=== PATIENT | male | born 1980 | race Caucasian/White ===

== ENCOUNTER 2016-12-06 21:50 | Emergency (ER) | payer BC ==
[2016-12-06] MEDS ORDERED: Sodium Chloride 0.9% 10 ML Syringe FLUSH PRN (22:01)
--- NOTE | 2016-12-06 22:04 | EDM.PDOC ---
ED HPI GENERAL MEDICAL PROBLEM - General Chief Complaint: General Stated Complaint: left arm numbness Time Seen by Provider: 12/06/16 21:59 Source of Information: Reports: Patient, EMS notes reviewed, Family, RN, RN notes reviewed History Limitations: Reports: No limitations - History of Present Illness INITIAL COMMENTS - FREE TEXT/NARRATIVE: Patient presents to emergency room via EMS at [facility] with a chief complaint of left arm numbness. The patient states the arm numbness has been present to some degree over the past couple of weeks. The patient states his symptoms began about one hour ago. The patient states soon after he ate some food, he felt generalized weakness and "just not feeling well." The patient states that the left arm numbness centralized around the AC joint area. The patient also states he had some substernal chest discomfort. The patient states he also became somewhat diaphoretic and lightheaded. No previous cardiac history. Patient denies any other focal neurological deficits. Patient denies any GI symptoms. Patient states that he does consume alcohol on a daily basis. The patient states that he does smoke one pack of cigarettes every 3 days. The patient denies any illegal drug use. Onset: today Onset Date: 12/06/16 Onset Time: 20:45 Duration: Waxing/waning Location: Reports: chest Quality: Reports: Dull Severity: moderate Improves with: Reports: None Context: Denies: Activity, Exercise, Lifting, Sick contact, Trauma Associated Symptoms: Reports: chest pain, diaphoresis, weakness. Denies: nausea /vomiting, shortness of breath - Related Data Allergies Allergy/AdvReac Type Severity Reaction Status Date / Time erythromycin base Allergy Airway Verified 12/06/16 22:03 Tightness Sulfa (Sulfonamide Allergy Rash Verified 12/06/16 22:03 Antibiotics) Home Meds: Home Meds . [No Known Home Meds] 12/06/16 [History] Past Medical History Genitourinary History: Reports: Other (see below) (History of Epididymitis) Social & Family History - Family History Family Medical History: Noncontributory - Tobacco Use Smoking Status *Q: Current Every Day Smoker Tobacco Use Within Last Twelve Months: Cigarettes Smoking Cessation Information Provided To Patient: Patient Refused - Tobacco Core Measures Tobacco Use/Smoking Within Last 30 Days: Refused Screening - Caffeine Use Caffeine Use: Reports: Coffee - Alcohol Use Alcohol Use History: Yes Alcohol Use in Last Twelve Months: Yes - Recreational Drug Use Recreational Drug Use: No Drug Use in Last 12 Months: No - Living Situation & Occupation Living situation: Reports: Occupation: employed ED ROS GENERAL - Review of Systems Review Of Systems: ROS reveals no pertinent complaints other than HPI. ED EXAM, GENERAL - Physical Exam Exam: See Below Exam Limited By: No limitations General Appearance: alert, no apparent distress, obese Respiratory/Chest: no respiratory distress, lungs clear, normal breath sounds Cardiovascular: normal peripheral pulses, regular rate, rhythm, no edema Peripheral Pulses: 2+: radial (L), radial (R) GI/Abdominal: soft, non tender, abnormal bowel sounds: (hypoactive) Extremities: normal inspection, normal range of motion, non-tender Neurological: alert, oriented Skin Exam: Warm, Dry, Intact, Normal color, No rash EKG INTERPRETATION EKG Date: 12/06/16 Time: 21:59 Rhythm: NSR Rate (beats/min): 84 [place]: normal P-wave: present QRS: normal ST-T: normal QT: normal TX/PQ Interval: 0.13 Comparison: NA - no prior EKG EKG Interpretation Comments: 1. Normal Sinus Rhythm 2. Normal ECG Course - Vital Signs Last Recorded V/S: Last Vital Signs Temp 37.5 C 12/06/16 21:56 Pulse 85 12/06/16 21:56 Resp 18 12/06/16 21:56 BP 131/72 12/06/16 21:56 Pulse Ox 99 12/06/16 21:56 - Orders/Labs/Meds Orders: Active Orders 24 hr Category Date Time Status EKG 12 Lead [EKG Documentation Completion] [RC] STAT Care 12/06/16 22:00 Active Chest 2V [CR] Stat Exams 12/06/16 22:00 Taken Sodium Chloride 0.9% [Saline Flush] Med 12/06/16 22:01 Active 10 ml FLUSH ASDIRECTED PRN Peripheral IV Insertion Adult [OM.PC] Routine Oth 12/06/16 22:01 Ordered Medication Orders Sodium Chloride (Saline Flush) 10 ml FLUSH ASDIRECTED PRN PRN Reason: Keep Vein Open Labs: Laboratory Tests 12/06/16 12/06/16 12/06/16 Range/Units 22:32 22:32 22:37 WBC 10.6 H (4.0-10.0) x10^3/uL RBC 5.66 (4.5-6.0) x10^6/uL Hgb 15.2 (14.0-18.0) g/dL Hct 46.5 (40.0-52.0) % MCV 82.2 (78.0-93.0) fL MCH 26.9 (26.0-32.0) pg MCHC 32.7 (32.0-36.0) g/dL RDW Coeff of Denilson 14.9 (10.0-15.0) % Plt Count 305 (130-400) x10^3/uL Neut % (Auto) 59.1 (50.0-80.0) % Lymph % (Auto) 30.2 (25.0-50.0) % [place] % (Auto) 7.3 (2.0-11.0) % Eos % (Auto) 3.0 (0.0-4.0) % Baso % (Auto) 0.4 (0.2-1.2) % Sodium 141 (136-145) mmol/L Potassium 3.5 (3.5-5.1) mmol/L Chloride 104 (98-107) mmol/L Carbon Dioxide 27 (21-32) mmol/L BUN 16 (7-18) mg/dL Creatinine 1.2 (0.70-1.30) mg/dL Est Cr Clr Drug Dosing TNP Estimated GFR (MDRD) > 60 Glucose 125 H (74-106) mg/dL Calcium 8.8 (8.5-10.1) mg/dL Corrected Calcium 8.80 (8.5-10.1) mg/dL Phosphorus 3.1 (2.6-4.7) mg/dL Magnesium 2.0 (1.8-2.4) mg/dL Total Bilirubin 0.3 (0.2-1.0) mg/dL AST 15 (15-37) U/L ALT 28 (16-63) U/L Alkaline Phosphatase 79 (46-116) U/L Creatine Kinase 102 (39-308) U/L Creatine Kinase Index 0.7 (0.0-4.0) % CK-MB (CK-2) 0.7 (0.0-3.6) ng/mL POC Troponin I 0.00 (0.00-0.08) ng/mL Total Protein 7.6 (6.4-8.2) g/dL Albumin 4.0 (3.4-5.0) g/dL Globulin 3.6 Albumin/Globulin Ratio 1.11 Ethyl Alcohol < 3 (0-3) mg/dL Meds: Medications Generic Name Dose Route Start Last Admin Trade Name Freq PRN Reason Stop Dose Admin Sodium Chloride 10 ml 12/06/16 22:01 Saline Flush FLUSH ASDIRECTED PRN Keep Vein Open - Radiology Interpretation Free Text/Narrative:: Normal 2V chest radiograph Departure - Departure Time of Disposition: 23:22 Disposition: Home, Self-Care 01 Condition: good Clinical Impression: Atypical chest pain, Left arm pain Referrals: PCP,None [Primary Care Provider] - Forms: ED Department Discharge Additional Instructions: 1. Stay well hydrated and rest 2. Avoid strenuous activity for a couple days 3. Recommend a full physical by your Primary Care Provider - Problem List Review Problem List Initiated/Reviewed/Updated: Yes - My Orders Last 24 Hours: My Active Orders 12/06/16 22:00 EKG 12 Lead [EKG Documentation Completion] [RC] STAT Chest 2V [CR] Stat 12/06/16 22:01 Sodium Chloride 0.9% [Saline Flush] 10 ml FLUSH ASDIRECTED PRN Peripheral IV Insertion Adult [OM.PC] Routine - Assessment/Plan Last 24 Hours: My Active Orders 12/06/16 22:00 EKG 12 Lead [EKG Documentation Completion] [RC] STAT Chest 2V [CR] Stat 12/06/16 22:01 Sodium Chloride 0.9% [Saline Flush] 10 ml FLUSH ASDIRECTED PRN Peripheral IV Insertion Adult [OM.PC] Routine
[2016-12-06 23:15] LABS: CHLORIDE,CL 104 mmol/L (98-107); SODIUM,NA 141 mmol/L (136-145)
[2016-12-06 23:23] VITALS: BP 124/70
== END 2016-12-06 23:30 | disposition home or self-care (01) ==
LOC: MERGE 21:50 → VM.ED 21:50
DX: R07.89 Other chest pain (principal); M79.602 Pain in left arm; F17.210 Nicotine dependence, cigarettes, uncomplicated; Z88.1 Allergy status to other antibiotic agents; Z88.2 Allergy status to sulfonamides
CPT/HCPCS: 36415; 71020; 80053; 82550; 82553; 83735; 84100; 84484; 85025; 93005; 99285; G0480